=== PATIENT | male | born 1935 | race Caucasian/White ===

== ENCOUNTER 2017-02-09 11:11 | Inpatient (IN) | payer MEDICARE ==
[2017-02-09 11:18] VITALS: BMI 32.0
--- NOTE | 2017-02-09 11:33 | ED PDOC ---
Arrival/HPI - General Chief Complaint: Weakness/Neurological Deficit Time Seen by Provider: 02/09/17 11:17 Historian: Patient - History of Present Illness Narrative History of Present Illness (Text): 02/09/17 11:15 Lakhwinder Ortiz is an 81 year old male, whose past medical history includes hypertension, who presents to the emergency department complaining of right sided facial droop that he noticed one day ago. Patient reports he was on his computer during the afternoon when he suddenly noticed a difference when trying to open his eyes. He also complains of having a headache on the right side and as the day progressed noticed drooping and numbness to right side of face. Denies fever. Denies trauma. Denies dysphagia. Patient denies recent illness, no coughing, fever, nausea, vomiting, shortness of breath, chest pain, or other complaints. Denies chest pain or palpitations. Denies shortness of breath or diaphoresis. PMD: patient lives in [place] Time/Duration: 24 hours Symptom Onset: Sudden Symptom Course: Unchanged Context: Home Associated Symptoms (Text): right sided headache Past Medical History - Provider Review Nursing Documentation Reviewed: Yes - Cardiac Hx Cardiac Disorders: Yes Hx Hypertension: Yes - Pulmonary Hx Respiratory Disorders: No - Neurological Hx Neurological Disorder: No - HEENT Hx HEENT Disorder: No - Renal Hx Renal Disorder: No - Endocrine/Metabolic Hx Endocrine Disorders: Yes Hx Diabetes Mellitus Type 2: Yes - Hematological/Oncological Hx Blood Disorders: No - Integumentary Hx Dermatological Disorder: No - Musculoskeletal/Rheumatological Hx Musculoskeletal Disorders: Yes Hx Arthritis: Yes - Gastrointestinal Hx Gastrointestinal Disorders: No - Genitourinary/Gynecological Hx Genitourinary Disorders: No - Psychiatric Hx Psychophysiologic Disorder: No Hx Substance Use: No Family/Social History - Physician Review Nursing Documentation Reviewed: Yes Family/Social History: Unknown Family HX Smoking Status: Never Smoked Hx Alcohol Use: No Hx Substance Use: No Allergies/Home Meds Allergies/Adverse Reactions: Allergies house dust Allergy (Verified 02/09/17 11:22) CONGESTION Home Medications: Home Meds Medication Instructions Recorded Confirmed Allopurinol [Zyloprim] 200 mg PO DAILY 02/09/17 02/09/17 amLODIPine [Norvasc] 5 mg PO DAILY 02/09/17 02/09/17 Review of Systems - Review of Systems Constitutional: absent: Fatigue, Fevers Eyes: Vision Changes, Other (limited eye control on the right side ) ENT: Other (drooling right sided of face, numbness to right face). absent: Hearing Changes Respiratory: absent: SOB Cardiovascular: absent: Chest Pain Gastrointestinal: absent: Abdominal Pain Genitourinary Male: absent: Dysuria Musculoskeletal: absent: Back Pain Neurological: Headache (right sided ), Facial Droop. absent: Dizziness, Focal Weakness, Gait Changes, Speech Changes, Disequilibrium, Seizure Endocrine: absent: Polydipsia Hemo/Lymphatic: absent: Easy Bleeding Physical Exam - Physical Exam Narrative Physical Exam (Text): 02/09/17 Head: Atraumatic. Normocephalic. Eyes: PERRL. EOMI. Conjunctivae are not pale. ENT: Mucous membranes are moist and intact. Oropharynx is clear and symmetric. No gingival edema or erythema. Neck: Supple. Full ROM. No JVD. No lymphadenopathy.No meningeal signs. Cardiovascular: Regular rate. Regular rhythm. Systolic murmur. Distal pulses are 2+ and symmetric. Pulmonary/Chest: No evidence of respiratory distress. Clear to auscultation bilaterally. No wheezing, rales or rhonchi. Abdominal: Soft and non-distended. There is no tenderness. No rebound, guarding, or rigidity. No organomegaly. Good bowel sounds. Back: No CVA tenderness. Extremities: No edema. No cyanosis. No clubbing. Full range of motion in all extremities. No calf tenderness. Skin: Skin is warm and dry. No petechiae. No purpura. Neurological: Alert, awake, and oriented to person, place, time, and situation. Normal speech. Incomplete right eyelid closure. Right eye tearing. EOMI. PERRLA. Right sided facial droop, forehead sparing. No tongue deviation. NO focal weakness in upper or lower extremities. Reflexes intact. Psychiatric: Good eye contact. Normal interaction, affect, and behavior. Vital Signs Reviewed: Yes Vital Signs Temp Pulse Resp BP Pulse Ox 02/09/17 14:25 94 H 20 149/88 98 02/09/17 13:15 87 20 134/93 H 96 02/09/17 11:42 97 H 18 132/86 96 02/09/17 11:16 97.8 F 94 H 17 164/93 H 97 Temperature: Afebrile Blood Pressure: Hypertensive Pulse: Tachycardic Respiratory Rate: Normal Appearance: Positive for: Well-Appearing, Non-Toxic Pain Distress: Mild Mental Status: Positive for: Alert and Oriented X 3 Finger Stick Blood Glucose: 109 Medical Decision Making ED Course and Treatment: 02/09/17 Impression: 81 year old with right sided facial droop since one day. Differential Diagnosis included but are not limited to: dean's palsy vs. CVA Plan: -- CT Head without contrast -- Chest X-ray -- EKG -- Labs -- Reassess and disposition Progress Notes: Patient has right sided facial droop with incomplete eyelid closure. No trauma. No fever. Forehead sparing. On exam, no fever or meningeal signs. NO dental erythema or edema. Patient with no weakness noted to the arm or legs. Steady gait. He has hx of HTN, diabetes. No prior history of tia or cva. He is visiting from [place]. Abnormal EKG noted, he denies chest pain or palpitations of sob. Card isos unremarkable. 02/09/17 11:47 Chest X-ray Impression: No active disease 02/09/17 12:20 CT Head: Creator : Ximena Abbott MD FINDINGS:Streak artifact from dental hardware. HEMORRHAGE:No intracranial hemorrhage. BRAIN:Diffuse atrophy with prominence of the ventricles and sulci noted. No mass effect or edema. Dense intracranial atherosclerosis. Scattered white matter hypodensities, which are nonspecific, but often seen with chronic microvascular ischemic disease. Please note that MRI with diffusion imaging is more sensitive in the detection of acute ischemic event. VENTRICLES:No hydrocephalus. CALVARIUM:Unremarkable. PARANASAL SINUSES:Mild mucosal thickening of the ethmoid air cells and frontal sinuses. MASTOID AIR CELLS:Unremarkable as visualized. No inflammatory changes. OTHER FINDINGS:None. Impression: Generalized atropathy. Nonspecific white matter changes. Mild mucosal thickening involving ethmoid air cells and bilateral frontal sinuses. Will admit for observation for neuro consultation as well as evaluation of abnormal EKG. D/W Dr. Mehta. Lacrilube, prednisone. valtrex ordered. Treatment plan reviewed with patient and family. - Lab Interpretations Lab Results: 02/09/17 11:30 02/09/17 12:31 Lab Results 02/09/17 12:31: Lyme Disease IgG Ab (IFA) Negative, Lyme Disease IgM Ab Negative 02/09/17 12:31: Sodium 140, Potassium 4.0, Chloride 105, Carbon Dioxide 25, Anion Gap 14, BUN 23 H, Creatinine 1.2, Est GFR ( Amer) > 60, Est GFR ( Non-Af Amer) 58, Random Glucose 119 H, Calcium 9.4, Total Bilirubin 0.8, AST 33 , ALT 41, Alkaline Phosphatase 76, Troponin I < 0.01, Total Protein 8.3, Albumin 4.4, Globulin 3.9, Albumin/Globulin Ratio 1.1, Triglycerides 100, Cholesterol 136, LDL Cholesterol Direct 37, HDL Cholesterol 56 02/09/17 11:30: Hemoglobin A1c 6.0 02/09/17 11:30: PT 11.1, INR 1.01, APTT 29.5 02/09/17 11:30: WBC 5.8, RBC 4.11, Hgb 13.8 L, Hct 40.5 L, MCV 98.5, MCH 33.6, MCHC 34.1, RDW 13.9, Plt Count 173, MPV 10.6, Gran % 62.5, Lymph % (Auto) 30.4, Alpine % (Auto) 5.5, Eos % (Auto) 0.9 L, Baso % (Auto) 0.7, Gran # 3.61, Lymph # 1.8, Alpine # 0.3, Eos # 0.1, Baso # 0.04 I have reviewed the lab results: Yes - RAD Interpretation Radiology Orders: 02/09/17 11:23 HEAD W/O CONTRAST [CT] Stat CHEST PORTABLE [RAD] Stat Head Of Human Resources: Radiologist - EKG Interpretation EKG Interpretation (Text): EKG at 11:25 normal sinus rhythm with sinus arrhythmia, t wave abnormality, consider anterolateral ischemia, prolonged qt Interpreted by ED Physician: Yes Type: 12 lead EKG Comparison: No previous EKG avail. - Medication Orders Current Medication Orders: Acetaminophen (Tylenol 325mg Tab) 650 mg PO Q4H PRN PRN Reason: pain fever Allopurinol (Zyloprim) 200 mg PO DAILY SYLVIA Amlodipine Besylate (Norvasc) 5 mg PO DAILY [facility] Famotidine (Pepcid) 40 mg PO HS [facility] Insulin Human Regular (Humulin R Low) 0 units SC ACHS SY[facility]IA PRN Reason: Protocol Last Admin: 02/09/17 16:52 Dose: 1 units MAR Blood Glucose Document 02/09/17 16:52 MM (Rec: 02/09/17 16:53 MM [id number]) Blood Glucose Finger Stick Blood Glucose (70-120) 158 Subcutaneous Administrations Document 02/09/17 16:52 MM (Rec: 02/09/17 16:53 MM [facility] [id number]) Charges for Administration # of Subcutaneous Administrations 1 Methylprednisolone (Solu-Medrol) 40 mg IVP Q12 SYLVIA Prednisone (Prednisone Tab) 60 mg PO DAILY SYLVIA Stop: 02/14/17 10:01 Discontinued Medications Artificial Tears (Puralube Opht Oint) 0 appl OD STAT STA Stop: 02/09/17 12:57 Last Admin: 02/09/17 13:07 Dose: 1 drop Aspirin (Aspirin Chewable) 81 mg PO STAT STA Stop: 02/09/17 12:54 Last Admin: 02/09/17 13:06 Dose: 81 mg Prednisone (Prednisone Tab) 60 mg PO STAT ONE Stop: 02/09/17 12:54 Last Admin: 02/09/17 13:06 Dose: 60 mg Valacyclovir HCl (Valtrex) 500 mg PO STAT STA PRN Reason: Protocol Stop: 02/09/17 13:01 Last Admin: 02/09/17 13:06 Dose: 500 mg - Scribe Statement The provider has reviewed the documentation as recorded by the Luis Levy Provider Scribe Attestation: All medical record entries made by the Abdulazizibe were at my direction and personally dictated by me. I have reviewed the chart and agree that the record accurately reflects my personal performance of the history, physical exam, medical decision making, and the department course for this patient. I have also personally directed, reviewed, and agree with the discharge instructions and disposition. Disposition/Present on Arrival - Present on Arrival Any Indicators Present on Arrival: No History of DVT/PE: No History of Uncontrolled Diabetes: No Urinary Catheter: No History of Decub. Ulcer: No History Surgical Site Infection Following: None - Disposition Have Diagnosis and Disposition been Completed?: Yes Diagnosis: Facial droop, Abnormal EKG Disposition: HOSPITALIZED Disposition Time: 12:30 Patient Plan: Admission, Telemetry Patient Problems: Current Active Problems Problem Status Onset Abnormal EKG Acute Facial droop Acute BPH (benign prostatic hyperplasia) Chronic Diabetes mellitus Chronic Gout Chronic Hypertension Chronic Osteoarthritis Chronic Condition: FAIR
--- NOTE | 2017-02-09 11:36 | RAD ---
HISTORY: facial droop COMPARISON: No prior. FINDINGS: LUNGS: No active pulmonary disease. PLEURA: No significant pleural effusion identified, no pneumothorax apparent. CARDIOVASCULAR: Mild cardiomegaly. Mild aortic tortuosity OSSEOUS STRUCTURES: No significant abnormalities. VISUALIZED UPPER ABDOMEN: Normal. OTHER FINDINGS: None. IMPRESSION: No active disease.
[2017-02-09 12:01] LABS: BASO # 0.04 K/mm3 (0.0-2.0); BASO % 0.7 % (0.0-3.0); EOS # 0.1 (0.0-0.7); EOS % 0.9 % (1.5-5.0); GRAN # 3.61 (1.4-6.5); GRAN % 62.5 % (50.0-68.0); HEMATOCRIT 40.5 % (42.0-52.0); LYMPH # 1.8 (1.2-3.4); LYMPH % 30.4 % (22.0-35.0); MEAN CELL VOLUME 98.5 fl (80.0-105.0); MEAN CORPUSCULAR HEMOGLOBIN 33.6 pg (25.0-35.0); MEAN CORPUSCULAR HGB CONC 34.1 g/dl (31.0-37.0); MEAN PLATELET VOLUME 10.6 fl (7.0-11.0); MONO # 0.3 (0.1-0.6); MONO % 5.5 % (1.0-6.0); RED CELL DISTRIBUTION WIDTH 13.9 % (11.5-14.5); WHITE BLOOD COUNT 5.8 10^3/ul (4.5-11.0)
[2017-02-09 12:10] LABS: INR 1.01 (0.93-1.08); PARTIAL THROMBOPLASTIN TIME 29.5 Seconds (25.1-36.5)
--- NOTE | 2017-02-09 12:18 | CT ---
PROCEDURE: CT HEAD WITHOUT CONTRAST. HISTORY: right sided facial droop COMPARISON: None available. TECHNIQUE: Axial computed tomography images were obtained through the head/brain without intravenous contrast. Radiation dose: Total exam DLP = 747.90 mGy-cm. This CT exam was performed using one or more of the following dose reduction techniques: Automated exposure control, adjustment of the mA and/or kV according to patient size, and/or use of iterative reconstruction technique. FINDINGS: Streak artifact from dental hardware. HEMORRHAGE: No intracranial hemorrhage. BRAIN: Diffuse atrophy with prominence of the ventricles and sulci noted. No mass effect or edema. Dense intracranial atherosclerosis. Scattered white matter hypodensities, which are nonspecific, but often seen with chronic microvascular ischemic disease. Please note that MRI with diffusion imaging is more sensitive in the detection of acute ischemic event. VENTRICLES: No hydrocephalus. CALVARIUM: Unremarkable. PARANASAL SINUSES: Mild mucosal thickening of the ethmoid air cells and frontal sinuses. MASTOID AIR CELLS: Unremarkable as visualized. No inflammatory changes. OTHER FINDINGS: None. IMPRESSION: Generalized atrophy. Nonspecific white matter changes. Mild mucosal thickening involving ethmoid air cells and bilateral frontal sinuses.
[2017-02-09 12:48] LABS: ALB/GLOB RATIO 1.1 (1.1-1.8); ALKALINE PHOSPHATASE 76 U/L (38-126); ALT/SGPT 41 U/L (7-56); AST/SGOT 33 U/L (17-59); BILIRUBIN,TOTAL 0.8 mg/dL (0.2-1.3); BLOOD UREA NITROGEN 23 mg/dL (7-21); CALCIUM 9.4 mg/dL (8.4-10.5); CARBON DIOXIDE 25 mmol/L (21-33); CHLORIDE 105 mmol/L (98-107); CHOLESTEROL 136 mg/dL (130-200); GFR AFRICAN-AMERICAN > 60; GLUCOSE,RANDOM 119 mg/dL (70-110); SODIUM 140 mmol/L (132-148); TOTAL PROTEIN 8.3 g/dL (5.8-8.3)
[2017-02-09] MEDS ORDERED: White Petrolatum Ophth Oint (Puralube) OD STA (12:56)
[2017-02-09 12:58] LABS: TROPONIN I < 0.01 ng/mL
--- NOTE | 2017-02-09 13:48 | CP.PCM.CON ---
<Anup Allan - Last Filed: 02/09/17 14:31> History of Present Illness - History of Present Illness History of Present Illness: Neurology consult note for Dr. Mehta's service - Jolene Allan PGY2 HPI: Patient is an 81 year-old male with past medical history of hypertension, diabetes mellitus type 2, gout, BPH and osteoarthritis that presents c/o right- sided facial droop. He reports that he was at his dentists office earlier today when his dentist noticed he had right-sided facial droop with asymmetric facial expressions. He reports that his dentist informed him he may be having a stroke and instructed him to go to the emergency room for evaluation. Patient's at bedside reported that neither had noticed the facial droop and he denied any focal weakness, numbness or tingling. He does not recall when the facial droop may have started. Denies chest pain, palpitations, SOB, abdominal pain, nausea, vomiting, fever, chills, cough. Neurology consulted for evaluation of right- sided facial droop and rule out of CVA. 12point ROS as per HPI above otherwise negative PMH: as stated above PSH: Appendectomy Allergies: dust Social Hx: Lives with his , resides in [place]; denies tobacco, alcohol and illicit drug use Family Hx: Brother: DM type 2; Father: Prostate Ca, Parkinson's Past Patient History - Past Social History Smoking Status: Never Smoked - CARDIAC Hx Cardiac Disorders: Yes Hx Hypertension: Yes - PULMONARY Hx Respiratory Disorders: No - NEUROLOGICAL Hx Neurological Disorder: No - HEENT Hx HEENT Problems: No - RENAL Hx Chronic Kidney Disease: No - ENDOCRINE/METABOLIC Hx Endocrine Disorders: Yes Hx Diabetes Mellitus Type 2: Yes - HEMATOLOGICAL/ONCOLOGICAL Hx Blood Disorders: No - INTEGUMENTARY Hx Dermatological Problems: No - MUSCULOSKELETAL/RHEUMATOLOGICAL Hx Musculoskeletal Disorders: Yes Hx Arthritis: Yes - GASTROINTESTINAL Hx Gastrointestinal Disorders: No - GENITOURINARY/GYNECOLOGICAL Hx Genitourinary Disorders: No - PSYCHIATRIC Hx Psychophysiologic Disorder: No Hx Substance Use: No - SURGICAL HISTORY Hx Surgeries: Yes Hx Appendectomy: Yes (1971) Meds Allergies/Adverse Reactions: Allergies Allergy/AdvReac Type Severity Reaction Status Date / Time house dust Allergy CONGESTION Verified 02/09/17 11:22 Physical Exam - Constitutional Appears: Non-toxic, No Acute Distress - Head Exam Head Exam: ATRAUMATIC, NORMAL INSPECTION, NORMOCEPHALIC - Eye Exam Eye Exam: EOMI, PERRL. absent: Conjunctival injection, Periorbital swelling - ENT Exam ENT Exam: Mucous Membranes Moist - Neck Exam Neck exam: Positive for: Normal Inspection. Negative for: Lymphadenopathy, Tenderness, Thyromegaly - Respiratory Exam Respiratory Exam: Clear to Auscultation Bilateral. absent: Rales, Rhonchi, Wheezes - Cardiovascular Exam Cardiovascular Exam: RRR, +S1, +S2. absent: Gallop, JVD, Rubs - GI/Abdominal Exam GI & Abdominal Exam: Soft. absent: Distended, Firm, Guarding, Rebound, Tenderness - Extremities Exam Extremities exam: Positive for: normal inspection. Negative for: pedal edema, tenderness - Neurological Exam Neurological exam: Alert, CN II-XII Intact, Oriented x3 Additional comments: right-sided facial droop EOMI PERRL CN2-12 grossly intact motor strength 5/5 bilaterally in upper and lower extremities sensory intact throughout babinski downward going bilaterally no drift gait deferred - Psychiatric Exam Psychiatric exam: Normal Affect, Normal Mood - Skin Skin Exam: Dry, Intact, Normal Color, Warm Results - Vital Signs Recent Vital Signs: Last Vital Signs Temp 97.8 F 02/09/17 11:16 Pulse 87 02/09/17 13:15 Resp 20 02/09/17 13:15 BP 134/93 H 02/09/17 13:15 Pulse Ox 96 02/09/17 13:15 - Labs Result Diagrams: 02/09/17 11:30 02/09/17 12:31 Assessment & Plan - Assessment and Plan (Free Text) Plan: 81 year-old male with history of DM type 2, BPH, osteoarthritis, hypertension and gout presents c/o right-sided facial droop. Neurology consulted for evaluation. 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 DM type 2 3. Hypertension 4. Osteoarthritis 5. 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 Mehta - Date & Time Date: 02/09/17 Time: 13:50 <Juanito Mehta - Last Filed: 02/09/17 16:28> Meds - Medications Medications: Current Medications Acetaminophen (Tylenol 325mg Tab) 650 mg PO Q4H PRN PRN Reason: pain fever Allopurinol (Zyloprim) 200 mg PO DAILY [facility] Amlodipine Besylate (Norvasc) 5 mg PO DAILY [facility] Famotidine (Pepcid) 40 mg PO HS [facility] Insulin Human Regular (Humulin R Low) 0 units SC ACHS [facility]IA PRN Reason: Protocol Methylprednisolone (Solu-Medrol) 40 mg IVP Q12 SY[facility]IA Prednisone (Prednisone Tab) 60 mg PO DAILY SY[facility]IA Stop: 02/14/17 10:01 Results - Vital Signs Recent Vital Signs: Last Vital Signs Temp 97.8 F 02/09/17 11:16 Pulse 94 H 02/09/17 14:25 Resp 20 02/09/17 14:25 BP 149/88 02/09/17 14:25 Pulse Ox 98 02/09/17 14:25 - Labs Result Diagrams: 02/09/17 11:30 02/09/17 12:31 Attending/Attestation - Attestation I have personally seen and examined this patient.: Yes I have fully participated in the care of the patient.: Yes I have reviewed all pertinent clinical information: Yes
[2017-02-09] MEDS: Insulin Reg-LOW-Coverage SC SCH (16:52)
[2017-02-09 18:03] LABS: LYME IGM NEGATIVE (NEGATIVE)
[2017-02-09 18:14] LABS: LYME IGG NEGATIVE (NEGATIVE)
--- NOTE | 2017-02-09 21:04 | CP.PCM.PN ---
Subjective - Date & Time of Evaluation Date of Evaluation: 02/09/17 Time of Evaluation: 21:01 - Subjective Subjective: 81yr male who recently traveled from [place] to [place] came to [facility] secondary to R side facial droop and R lid lag. History includes: HTN, DM II, ostearthritis, BPH, & gout. Patient seen at bedside and reports improvement of facial muscles after being started on steroids. He denies denies any SOB, N/V, chest pain, diarrhea, constipation or urinary frequency. Objective - Vital Signs/Intake and Output Vital Signs (last 24 hours): Temp Pulse Resp BP Pulse Ox 98 F 116 H 17 142/91 H 98 02/09/17 18:00 02/09/17 18:00 02/09/17 18:00 02/09/17 18:00 02/09/17 14:25 - Medications Medications: Current Medications Acetaminophen (Tylenol 325mg Tab) 650 mg PO Q4H PRN PRN Reason: pain fever Allopurinol (Zyloprim) 200 mg PO DAILY SY[facility]IA Amlodipine Besylate (Norvasc) 5 mg PO DAILY [facility] Famotidine (Pepcid) 40 mg PO HS [facility] Insulin Human Regular (Humulin R Low) 0 units SC ACHS [facility]IA PRN Reason: Protocol Last Admin: 02/09/17 16:52 Dose: 1 units Methylprednisolone (Solu-Medrol) 40 mg IVP Q12 SY[facility]IA Prednisone (Prednisone Tab) 60 mg PO DAILY SYLVIA Stop: 02/14/17 10:01 - Labs Labs: PT 11.1 SECONDS (9.4-12.5) 02/09/17 11:30 INR 1.01 (0.93-1.08) 02/09/17 11:30 APTT 29.5 Seconds (25.1-36.5) 02/09/17 11:30 - Constitutional Appears: Well - Head Exam Head Exam: NORMAL INSPECTION Additional comments: R facial paralysis - Eye Exam Eye Exam: PERRL Additional comments: R eye lid leg w/ ocular lubricant applied - ENT Exam ENT Exam: Mucous Membranes Moist - Neck Exam Neck Exam: Full ROM - Respiratory Exam Respiratory Exam: Clear to Ausculation Bilateral - Cardiovascular Exam Cardiovascular Exam: Tachycardia, +S1, +S2 - GI/Abdominal Exam GI & Abdominal Exam: Soft - Extremities Exam Extremities Exam: Full ROM - Neurological Exam Neurological Exam: Alert, Awake, Oriented x3 Neuro motor strength exam: Left Upper Extremity: 5, Right Upper Extremity: 5, Left Lower Extremity: 5, Right Lower Extremity: 5 - Psychiatric Exam Psychiatric exam: Normal Affect, Normal Mood - Skin Skin Exam: Dry, Intact, Normal Color, Warm Assessment and Plan (1) Facial droop Status: Acute (2) Abnormal EKG Status: Acute (3) Hypertension Status: Chronic (4) Diabetes mellitus Status: Chronic (5) BPH (benign prostatic hyperplasia) Status: Chronic (6) Gout Status: Chronic (7) Osteoarthritis Status: Chronic - Assessment and Plan (Free Text) Plan: 1) R side face paralysis * Dr. Mehta on for Neurology, Chaudhry's Palsy vs. CVA/TIA * (+)Prednisose (+)Lubricating eye drops (+)eye patch * Head CT = Mild mucosal thickening in ethmoid air cells & b/l frontal sinuses * CXR (-) WNL 2)Abnormal ECG * ECG = Abnormal: NSR w/ SA, T wave abnormalities (possible anterolateral ischemia), prolonged QT * Dr. Uribe / Dr. Hatfield on for Cardiology 3)HTN * Elevated BP readings noted. 4)DM II * Hyperglycemia noted.
--- NOTE | 2017-02-09 21:23 | CP.PCM.HP ---
<Tena Solitario - Last Filed: 02/13/17 09:36> History of Present Illness - History of Present Illness History of Present Illness: 81yr male who recently traveled from [place] to [place] came to [facility] secondary to R side facial droop and R lid lag. History includes: HTN, DM II, ostearthritis, BPH, & gout. Patient seen at bedside and reports improvement of facial muscles after being started on steroids. He denies denies any SOB, N/V, chest pain, diarrhea, constipation or urinary frequency. Present on Admission - Present on Admission History of DVT/PE: No History of Uncontrolled Diabetes: Yes Urinary Catheter: No Decubitus Ulcer Present: No Review of Systems - Constitutional Constitutional: As Per HPI - EENT Eyes: As Per HPI Past Patient History - Past Medical History & Family History Past Family History: Reviewed and not pertinent - Past Social History Smoking Status: Never Smoked Alcohol: None Drugs: Denies Home Situation {Lives}: Other (Lives in [place]) - CARDIAC Hx Cardiac Disorders: Yes Hx Cardia Arrhythmia: Yes Hx Hypertension: Yes - PULMONARY Hx Respiratory Disorders: No - NEUROLOGICAL Hx Neurological Disorder: No - HEENT Hx HEENT Problems: No - RENAL Hx Chronic Kidney Disease: Yes - ENDOCRINE/METABOLIC Hx Endocrine Disorders: Yes Hx Diabetes Insipidus: Yes Hx Diabetes Mellitus Type 2: Yes Other/Comment: appendectomy - HEMATOLOGICAL/ONCOLOGICAL Hx Blood Disorders: No - INTEGUMENTARY Hx Dermatological Problems: No Other/Comment: dry skin - MUSCULOSKELETAL/RHEUMATOLOGICAL Hx Musculoskeletal Disorders: Yes Hx Falls: No Hx Gout: Yes Hx Osteoarthritis: Yes - GASTROINTESTINAL Hx Gastrointestinal Disorders: No - GENITOURINARY/GYNECOLOGICAL Hx Genitourinary Disorders: No Hx Prostate Problems: Yes (BPH) - PSYCHIATRIC Hx Psychophysiologic Disorder: No Hx Substance Use: No - SURGICAL HISTORY Hx Appendectomy: Yes Meds Home Medications: Home Medication List Medication Instructions Recorded Confirmed Type Famotidine [Pepcid] 40 mg PO HS #30 tab 02/12/17 Rx Allergies/Adverse Reactions: Allergies Allergy/AdvReac Type Severity Reaction Status Date / Time house dust Allergy CONGESTION Verified 02/09/17 11:22 Physical Exam - Head Exam Additional comments: R facial paralysis - Eye Exam Additional comments: R eye lid leg w/ ocular lubricant applied - ENT Exam ENT Exam: Mucous Membranes Moist - Neck Exam Neck exam: Positive for: Normal Inspection - Respiratory Exam Respiratory Exam: Clear to Auscultation Bilateral - Cardiovascular Exam Cardiovascular Exam: Tachycardia, +S1, +S2 - GI/Abdominal Exam GI & Abdominal Exam: Normal Bowel Sounds, Soft - Extremities Exam Extremities exam: Positive for: full ROM, normal inspection - Neurological Exam Neurological exam: Alert, Oriented x3 - Psychiatric Exam Psychiatric exam: Normal Affect - Skin Skin Exam: Dry, Intact, Normal Color Results - Vital Signs Recent Vital Signs: Last Vital Signs Temp 98 F 02/09/17 18:00 Pulse 116 H 02/09/17 18:00 Resp 17 02/09/17 18:00 BP 142/91 H 02/09/17 18:00 Pulse Ox 98 02/09/17 14:25 - Labs Result Diagrams: 02/12/17 07:00 02/12/17 07:00 Assessment & Plan (1) Facial droop Status: Acute (2) Abnormal EKG Status: Acute (3) Hypertension Status: Chronic (4) Diabetes mellitus Status: Chronic (5) Anemia Status: Acute (6) Gout Status: Chronic (7) Osteoarthritis Status: Chronic (8) BPH (benign prostatic hyperplasia) Status: Chronic - Assessment and Plan (Free Text) Assessment: 1) R side face paralysis * Dr. 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 Uribe / Dr. Hatfield on for Cardiology * CXR (-) WNL 3)HTN * Elevated BP readings noted. 4)DM II * Hyperglycemia noted. 5)Anemia * Borderline. Will repeat labs. 6)Gout, Osteoarthritis, BPH are stable. Decision To Admit - Pt Status Changed To: Hospital Disposition Of: Observation - . Bed Request Type: Telemetry Admitting Physician: Aliyah Lam <Aliyah Lam - Last Filed: 02/13/17 10:42> Present on Admission - Present on Admission Any Indicators Present on Admission: No History of DVT/PE: No History of Uncontrolled Diabetes: Yes Urinary Catheter: No Decubitus Ulcer Present: No Results - Vital Signs Recent Vital Signs: Last Vital Signs Temp 98.7 F 02/10/17 06:00 Pulse 77 02/10/17 06:00 Resp 19 02/10/17 06:00 BP 116/66 02/10/17 06:00 Pulse Ox 95 02/10/17 06:00 - Labs Result Diagrams: 02/12/17 07:00 02/12/17 07:00 Labs: Laboratory Results - last 24 hr 02/09/17 21:36 POC Glucose (mg/dL) 226 H Assessment & Plan - Assessment and Plan (Free Text) Plan: 81yr male who recently traveled from [place] to [place] came to [facility] secondary to R side facial droop and R lid lag. History includes: HTN, DM II, ostearthritis, BPH, & gout. Patient seen at bedside and reports improvement of facial muscles after being started on steroids. He denies denies any SOB, N/V, chest pain, diarrhea, constipation or urinary frequency. PLAN 1) R side face paralysis * Dr. 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 Uribe / Dr. Hatfield on for Cardiology * CXR (-) WNL 3)HTN * Elevated BP readings noted. 4)DM II * Hyperglycemia noted. 5)Anemia * Borderline. Will repeat labs. 6)Gout, Osteoarthritis, BPH are stable. agreed all above , pt is s/e at bed side , d/d with pt , loan review analyst and staff , neurology consult called , pt .ot 0rdered
[2017-02-09] MEDS: MethylPREDNISolone 40 mg Vial IVP SCH (21:50)
[2017-02-10] MEDS: Insulin Reg-LOW-Coverage SC SCH ×5 (01:11→21:22)
[2017-02-10] MEDS: MethylPREDNISolone 40 mg Vial IVP SCH ×3 (09:59→22:37)
--- NOTE | 2017-02-10 10:15 | CARD ---
APPROVED REPORT EKG Measurement Heart [id number] <Conclusion> Normal sinus rhythm with sinus arrhythmia T wave abnormality, consider anterolateral ischemia Prolonged QT Abnormal ECG
--- NOTE | 2017-02-11 00:14 | PN ---
DATE: SUBJECTIVE: The patient is a 81-year-old male. The patient is seen and examined at the bedside looking comfortable. Still having facial asymmetry. No nausea, vomiting, or diarrhea. No hematuria or hematochezia. No headache. No dizziness. No chest pain. No palpitation. No swellings of the legs. PHYSICAL EXAMINATION: VITAL SIGNS: Temperature 98.8, pulse 70, blood pressure 128/75, and respiratory rate 20. HEENT: Head is normocephalic and atraumatic. Eyes, PERRLA. Extraocular muscles intact. Conjunctivae clear. Nose patent. NECK: Supple. No carotid bruits. No JVD or thyromegaly. CHEST: Bilaterally symmetrical. HEART: S1 and S2 positive. LUNGS: Clear to auscultation. ABDOMEN: Soft. Bowel sounds present. No organomegaly. EXTREMITIES: No edema. No cyanosis. NEUROLOGICAL: The patient is awake and alert. Moving all 4 extremities. No focal deficit. MEDICATIONS: Insulin, amlodipine, Pepcid, prednisone tapering dose, Tylenol, and allopurinol. LABORATORY DATA: White blood cells 5.8, hemoglobin 13.8, hematocrit 40.5, and platelets 173. Sodium 140, potassium 4, BUN 23, creatinine 1.2 and glucose 158. Random glucose 119. ASSESSMENT AND PLAN: Mr. Lakhwinder Ortiz is an 81-year-old male with anemia, uncontrolled diabetes mellitus, Lyme disease negative, seen by Dr. 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 The patient is getting prednisone and lubricating eyedrops in the emergency room. Continue steroids, protective measures, gastrointestinal and deep vein thrombosis prophylaxis. We will do bilateral carotid Doppler of the neck, out of bed, physical therapy and occupational therapy and we will follow up. Aliyah Lam MD
[2017-02-11 06:20] LABS: HEMATOCRIT 37.6 % (42.0-52.0); MEAN CELL VOLUME 97.4 fl (80.0-105.0); MEAN CORPUSCULAR HEMOGLOBIN 32.9 pg (25.0-35.0); MEAN CORPUSCULAR HGB CONC 33.8 g/dl (31.0-37.0); MEAN PLATELET VOLUME 10.6 fl (7.0-11.0); RED CELL DISTRIBUTION WIDTH 13.9 % (11.5-14.5); WHITE BLOOD COUNT 11.3 10^3/ul (4.5-11.0)
[2017-02-11 06:40] LABS: ALKALINE PHOSPHATASE 58 U/L (38-126); ALT/SGPT 43 U/L (7-56); AST/SGOT 32 U/L (17-59); BILIRUBIN,TOTAL 0.5 mg/dL (0.2-1.3); BLOOD UREA NITROGEN 33 mg/dL (7-21); CALCIUM 9.2 mg/dL (8.4-10.5); CARBON DIOXIDE 24 mmol/L (21-33); CHLORIDE 109 mmol/L (95-110); GFR AFRICAN-AMERICAN > 60; GLUCOSE,RANDOM 138 mg/dL (70-110); POTASSIUM 4.1 mmol/L (3.6-5.0); SODIUM 141 mmol/L (132-148); TOTAL PROTEIN 7.6 g/dL (5.8-8.3); URIC ACID 6.6 mg/dL (3.5-8.5)
[2017-02-11] MEDS: Insulin Reg-LOW-Coverage SC SCH ×4 (08:04→22:46)
[2017-02-11] MEDS: White Petrolatum Ophth Oint (Puralube) OD SCH ×3 (09:53→17:17)
[2017-02-11] MEDS: MethylPREDNISolone 40 mg Vial IVP SCH ×2 (09:53→22:32)
--- NOTE | 2017-02-11 18:32 | PN ---
DATE: SUBJECTIVE: The patient is an 81-year-old male. The patient is seen and examined at the bedside, got Occupational Therapy and Physical Therapy in the morning. Feeling better. No nausea, vomiting, or diarrhea. No hematuria or hematochezia. No headache. No dizziness. No chest pain. No palpitation. PHYSICAL EXAMINATION: VITAL SIGNS: Temperature 97.4, pulse 74, blood pressure 134/68, and respiratory rate 20. HEENT: Head is normocephalic and atraumatic. Eyes, PERRLA. Extraocular muscles intact. Conjunctivae clear. Nose patent. Mucous membrane is moist. NECK: Supple. No carotid bruits. No JVD or thyromegaly. CHEST: Bilaterally symmetrical. HEART: S1 and S2 positive. LUNGS: Clear to auscultation. ABDOMEN: Soft. Bowel sounds present. No organomegaly. EXTREMITIES: No edema. No cyanosis. NEUROLOGICAL: The patient is awake and alert. Moving all 4 extremities. No focal deficit. MEDICATIONS: Insulin, Norvasc, Pepcid, artificial tears, Solu-Medrol, Tylenol, and allopurinol. LABORATORY DATA: White blood cells 11.3, hemoglobin 12.7, hematocrit 37.6, and platelets 172. Sodium 141, potassium 4.1, BUN 33, creatinine 1.3 and glucose 187. TSH 0.28. Lyme disease negative. ASSESSMENT AND PLAN: Mr. Lakhwinder Ortiz is an 81-year-old male with leukocytosis, anemia, diabetes mellitus uncontrolled, rule out hyperthyroidism, Lyme disease negative, history of osteoarthritis, hypertension, gouty arthritis, came with right-sided facial droop and eye droop, has Chaudhry's palsy as per Neurologist. The patient is getting prednisone and lubricating the eyedrops in the right eye. We will continue tapering dose of steroids. Bilateral carotid Doppler of the neck done. Results are pending. Waiting for Dr. Dr. Juanito Mehta's input and Dr. Marcial's input. Gastrointestinal and deep vein thrombosis prophylaxis, repeat labs. We will follow up. Aliyah Lam MD
--- NOTE | 2017-02-11 21:06 | CP.PCM.CON ---
History of Present Illness - History of Present Illness History of Present Illness: Infectious Disease Consultation: February 11, 2017 81 yo male who travels from [place] to [place]. Sudden onset of Right facial droop and lid lag. No previous history. Patient with past medical history of osteoarthritis, BPH, Gout, HTN, and DM Type II. Patient still with right lower facial weakness. Deviation of the tongue to the left. PMHx: osteoarthritis, BPH, Gout, HTN, Cardiac Arrhythmias, and DM Type II PSHx: Appendectomy Allergies: house dust Social Hx: No tobacco, EtOH, or illicit drug use Active Medications Acetaminophen (Tylenol 325mg Tab) 650 mg PO Q4H PRN PRN Reason: pain fever Allopurinol (Zyloprim) 200 mg PO DAILY [facility] Last Admin: 02/11/17 09:53 Dose: 200 mg Amlodipine Besylate (Norvasc) 5 mg PO DAILY [facility] Last Admin: 02/11/17 09:53 Dose: 5 mg Artificial Tears (Puralube Opht Oint) 1 appl OD TID [facility] Last Admin: 02/11/17 17:17 Dose: 1 appl Famotidine (Pepcid) 40 mg PO HS [facility] Last Admin: 02/10/17 21:22 Dose: 40 mg Insulin Human Regular (Humulin R Low) 0 units SC ACHS [facility] PRN Reason: Protocol Last Admin: 02/11/17 16:44 Dose: 1 units Methylprednisolone (Solu-Medrol) 30 mg IVP Q12 [facility] Family Hx: none given ROS: No fevers, chills, nausea, vomiting, diarrhea, headaches, dizziness, chest pain , abdominal pain, melena, hematuria, hematemesis, hematochezia, depression, anxiety. Past Patient History - Past Medical History & Family History Past Family History: Reviewed and not pertinent - Past Social History Smoking Status: Never Smoked - CARDIAC Hx Cardiac Disorders: Yes Hx Hypertension: Yes - PULMONARY Hx Respiratory Disorders: No - NEUROLOGICAL Hx Neurological Disorder: No - HEENT Hx HEENT Problems: No - RENAL Hx Chronic Kidney Disease: No - ENDOCRINE/METABOLIC Hx Diabetes Mellitus Type 2: Yes - HEMATOLOGICAL/ONCOLOGICAL Hx Blood Disorders: No - INTEGUMENTARY Hx Dermatological Problems: No - MUSCULOSKELETAL/RHEUMATOLOGICAL Hx Arthritis: Yes - GASTROINTESTINAL Hx Gastrointestinal Disorders: No - GENITOURINARY/GYNECOLOGICAL Hx Genitourinary Disorders: No - PSYCHIATRIC Hx Psychophysiologic Disorder: No Hx Substance Use: No - SURGICAL HISTORY Hx Appendectomy: Yes Meds Allergies/Adverse Reactions: Allergies Allergy/AdvReac Type Severity Reaction Status Date / Time house dust Allergy CONGESTION Verified 02/09/17 11:22 - Medications Medications: Current Medications Acetaminophen (Tylenol 325mg Tab) 650 mg PO Q4H PRN PRN Reason: pain fever Allopurinol (Zyloprim) 200 mg PO DAILY [facility] Last Admin: 02/11/17 09:53 Dose: 200 mg Amlodipine Besylate (Norvasc) 5 mg PO DAILY [facility] Last Admin: 02/11/17 09:53 Dose: 5 mg Artificial Tears (Puralube Opht Oint) 1 appl OD TID [facility] Last Admin: 02/11/17 17:17 Dose: 1 appl Famotidine (Pepcid) 40 mg PO HS [facility] Last Admin: 02/10/17 21:22 Dose: 40 mg Insulin Human Regular (Humulin R Low) 0 units SC ACHS [facility] PRN Reason: Protocol Last Admin: 02/11/17 16:44 Dose: 1 units Methylprednisolone (Solu-Medrol) 30 mg IVP Q12 [facility] Physical Exam - Constitutional Appears: Non-toxic, No Acute Distress, Chronically Ill - Head Exam Head Exam: ATRAUMATIC, NORMOCEPHALIC - Eye Exam Eye Exam: EOMI, PERRL Pupil Exam: NORMAL ACCOMODATION, PERRL - ENT Exam ENT Exam: Mucous Membranes Moist, Normal External Ear Exam, TM's Normal Bilaterally - Neck Exam Neck exam: Positive for: Full Rom, Normal Inspection - Respiratory Exam Respiratory Exam: Clear to Auscultation Bilateral, NORMAL BREATHING PATTERN. absent: Rales, Rhonchi, Wheezes - Cardiovascular Exam Cardiovascular Exam: REGULAR RHYTHM, RRR, +S1, +S2 - GI/Abdominal Exam GI & Abdominal Exam: Normal Bowel Sounds, Soft. absent: Distended, Tenderness - Rectal Exam Rectal Exam: NORMAL INSPECTION - Extremities Exam Extremities exam: Positive for: full ROM, normal inspection - Neurological Exam Neurological exam: Alert, Altered, Oriented x3 Additional comments: right facial droop with deviation of tongue to the left. - Psychiatric Exam Psychiatric exam: Normal Affect, Normal Mood - Skin Skin Exam: Intact, Normal Color Results - Vital Signs Recent Vital Signs: Last Vital Signs Temp 98.1 F 02/11/17 17:37 Pulse 65 02/11/17 18:00 Resp 18 11/12/17 17:37 BP 138/73 02/11/17 17:37 Pulse Ox 94 L 02/11/17 17:29 - Labs Result Diagrams: 02/11/17 05:30 02/11/17 05:30 Labs: Laboratory Results - last 24 hr 02/10/17 02/11/17 02/11/17 21:19 05:30 05:30 WBC 11.3 H D RBC 3.86 Hgb 12.7 L Hct 37.6 L MCV 97.4 MCH 32.9 MCHC 33.8 RDW 13.9 Plt Count 172 MPV 10.6 Sodium 141 Potassium 4.1 Chloride 109 Carbon Dioxide 24 Anion Gap 12 BUN 33 H Creatinine 1.3 Est GFR ( Amer) > 60 Est GFR (Non-Af Amer) 53 POC Glucose (mg/dL) 162 H Random Glucose 138 H Uric Acid 6.6 Calcium 9.2 Total Bilirubin 0.5 AST 32 ALT 43 Alkaline Phosphatase 58 Total Protein 7.6 Albumin 3.9 Globulin 3.8 Albumin/Globulin Ratio 1.0 L TSH 3rd Generation 02/11/17 02/11/17 02/11/17 05:30 07:42 11:49 WBC RBC Hgb Hct MCV MCH MCHC RDW Plt Count MPV Sodium Potassium Chloride Carbon Dioxide Anion Gap BUN Creatinine Est GFR ( Amer) Est GFR (Non-Af Amer) POC Glucose (mg/dL) 133 H 122 H Random Glucose Uric Acid Calcium Total Bilirubin AST ALT Alkaline Phosphatase Total Protein Albumin Globulin Albumin/Globulin Ratio TSH 3rd Generation 0.28 L 02/11/17 16:30 WBC RBC Hgb Hct MCV MCH MCHC RDW Plt Count MPV Sodium Potassium Chloride Carbon Dioxide Anion Gap BUN Creatinine Est GFR ( Amer) Est GFR (Non-Af Amer) POC Glucose (mg/dL) 187 H Random Glucose Uric Acid Calcium Total Bilirubin AST ALT Alkaline Phosphatase Total Protein Albumin Globulin Albumin/Globulin Ratio TSH 3rd Generation Assessment & Plan - Assessment and Plan (Free Text) Assessment: 81 yo male presenting with new onset right lower facial droop and eyelid lag. No previous history. Check for common viruses as a trigger point. There is no set therapy for the patient's current neurologic condition. It does not appear allergic in nature. Supportive care. Obtain influenza, CMV, and EBV studies at this time. Obtain ESR and C-Reactive protein. Thank you for allowing me to participate in the care of this patient, we will follow with you.
[2017-02-12 03:20] VITALS: RESP 20
[2017-02-12 07:11] VITALS: O2SAT 96
[2017-02-12 07:25] LABS: HEMATOCRIT 38.4 % (42.0-52.0); MEAN CELL VOLUME 98.2 fl (80.0-105.0); MEAN CORPUSCULAR HGB CONC 33.6 g/dl (31.0-37.0); MEAN PLATELET VOLUME 10.7 fl (7.0-11.0); RED CELL DISTRIBUTION WIDTH 14.1 % (11.5-14.5); WHITE BLOOD COUNT 10.7 10^3/ul (4.5-11.0)
[2017-02-12 07:50] LABS: BLOOD UREA NITROGEN 37 mg/dL (7-21); CARBON DIOXIDE 27 mmol/L (21-33); CHLORIDE 107 mmol/L (98-107); GFR AFRICAN-AMERICAN > 60; GLUCOSE,RANDOM 133 mg/dL (70-110); POTASSIUM 4.4 mmol/L (3.6-5.0); SODIUM 142 mmol/L (132-148)
[2017-02-12] MEDS: Insulin Reg-LOW-Coverage SC SCH ×2 (08:00→11:57)
--- NOTE | 2017-02-12 09:00 | US ---
PROCEDURE: Bilateral carotid artery duplex ultrasound HISTORY: Carotid stenosis TIA PHYSICIAN(S): Tristin Gudino MD. TECHNIQUE: Duplex sonography and color-flow Doppler were used to evaluate the carotid bifurcations and limited segments of the vertebral arteries bilaterally. The exam is somewhat limited by body habitus P FINDINGS: There is mild smooth heterogeneous plaque noted at the carotid bifurcations bilaterally. The peak systolic velocity in the proximal right internal carotid artery is 55 cm/sec. This corresponds to a 20 to 39% proximal right ICA stenosis. Normal systolic velocities are noted in the proximal right external carotid artery. There is antegrade flow in the right vertebral artery. The peak systolic velocity in the proximal left internal carotid artery is 86 cm/sec. This corresponds to a 20 to 39% proximal left ICA stenosis. Normal systolic velocities are noted in the proximal left external carotid artery. There is antegrade flow in the left vertebral artery. IMPRESSION: 1. Bilateral 20-39% proximal ICA stenoses. 2. Antegrade flow in both vertebral arteries.
[2017-02-12] MEDS: MethylPREDNISolone 40 mg Vial IVP SCH (09:52)
[2017-02-12] MEDS: White Petrolatum Ophth Oint (Puralube) OD SCH (09:53)
[2017-02-12 12:37] VITALS: BP 148/83; PULSE 63; TEMP 98.3
--- NOTE | 2017-02-12 17:37 | CARD ---
APPROVED REPORT EXAM: Two-dimensional and M-mode echocardiogram with Doppler and color Doppler. INDICATION Dyspnea 2D DIMENSIONS Left Atrium (2D)4.4 (1.6-4.0cm)IVSd1.5 (0.7-1.1cm) LVDd3.5 (3.9-5.9cm)PWd1.4 (0.7-1.1cm) LVDs2.6 (2.5-4.0cm)FS (%) 25.1 % LVEF (%)50.7 (>50%) M-Mode DIMENSIONS Aortic Root3.90 (2.2-3.7cm)Aortic Cusp Exc.1.30 (1.5-2.0cm) Aortic Valve AoV Peak Ebyoxtfp679.0cm/Nicolás Peak GR.12mmHg Mitral Valve MV E Ndkblnut52.3cm/sMV A Whltjusb733.0cm/sE/A ratio0.5 TDI E/Lateral E'0.0E/Medial E'0.0 Tricuspid Valve TR Peak [id number] [id number] Peak Gr.21mmHg [id number] LEFT VENTRICLE The left ventricle is normal size. There is mild concentric left ventricular hypertrophy. The left ventricular function is normal.EF-55% There is normal LV segmental wall motion. Transmitral Doppler flow pattern is Grade III-reversible restrictive diastolic dysfunction. No left ventricle thrombus noted on this study. There is no ventricular septal defect visualized. There is no left ventricular aneurysm. There is no mass noted in the left ventricle. RIGHT VENTRICLE The right ventricle is normal size. There is normal right ventricular wall thickness. The right ventricular systolic function is normal. ATRIA The left atrium is mildly dilated. The right atrium size is normal. The interatrial septum is intact with no evidence for an atrial septal defect. AORTIC VALVE The aortic valve is thickened but opens well. The aortic valve is mildly to moderately sclerotic. There is mild to moderate aortic regurgitation. There is no aortic valvular stenosis. There is no aortic valvular vegetation. MITRAL VALVE The mitral valve is thickened but opens well. Mitral annular calcification is mild. Mitral regurgitation is mild. There is no mitral valve stenosis. There is no evidence of mitral valve prolapse. TRICUSPID VALVE The tricuspid valve is normal in structure. There is mild tricuspid regurgitation.RVSP-31 mmof hg. There is no tricuspid valve stenosis. There is no tricuspid valve prolapse or vegetation. PULMONIC VALVE The pulmonary valve is normal in structure. There is no pulmonic valvular regurgitation. There is no pulmonic valvular stenosis. GREAT VESSELS The aortic root is normal in size. The ascending aorta is normal in size. The pulmonary artery is normal. The IVC is normal in size and collapses >50% with inspiration. PERICARDIAL EFFUSION There is no pleural effusion. There is no pericardial effusion. <Conclusion> The left ventricle is normal size. There is mild concentric left ventricular hypertrophy. The left ventricular function is normal.EF-55% There is mild to moderate aortic regurgitation. Mitral regurgitation is mild. There is mild tricuspid regurgitation.RVSP-31 mmof hg. The IVC is normal in size and collapses >50% with inspiration. There is no pericardial effusion.
--- NOTE | 2017-02-12 17:51 | CP.PCM.PN ---
Subjective - Date & Time of Evaluation Date of Evaluation: 02/12/17 Time of Evaluation: 14:00 - Subjective Subjective: Infectious Disease Follow Up: February 12, 2017 81 yo male who travels from [place] to [place]. Sudden onset of Right facial droop and lid lag. No previous history. Patient with past medical history of osteoarthritis, BPH, Gout, HTN, and DM Type II. Patient still with right lower facial weakness. Deviation of the tongue to the left. Diagnosis of Chaudhry's Palsy. The patient had been given a dose of Acyclovir in ER. Patient stating that he feels better. Objective - Vital Signs/Intake and Output Vital Signs (last 24 hours): Temp Pulse Resp BP Pulse Ox 98.3 F 63 20 148/83 96 02/12/17 12:00 02/12/17 12:00 02/12/17 12:00 02/12/17 12:00 02/12/17 06:00 Intake and Output: 02/12/17 02/12/17 06:59 18:59 Intake Total 200 Output Total 1000 Balance -800 - Medications Medications: Current Medications Acetaminophen (Tylenol 325mg Tab) 650 mg PO Q4H PRN PRN Reason: pain fever Allopurinol (Zyloprim) 200 mg PO DAILY [facility] Last Admin: 02/12/17 09:52 Dose: 200 mg Amlodipine Besylate (Norvasc) 5 mg PO DAILY [facility] Last Admin: 02/12/17 09:51 Dose: 5 mg Artificial Tears (Puralube Opht Oint) 1 appl OD TID [facility] Last Admin: 02/12/17 09:53 Dose: 1 appl Famotidine (Pepcid) 40 mg PO HS [facility] Last Admin: 02/11/17 22:32 Dose: 40 mg Insulin Human Regular (Humulin R Low) 0 units SC ACHS [facility] PRN Reason: Protocol Last Admin: 02/12/17 11:57 Dose: 2 units Methylprednisolone (Solu-Medrol) 30 mg IVP Q12 [facility] Last Admin: 02/12/17 09:52 Dose: 30 mg - Labs Labs: 02/12/17 07:00 02/12/17 07:00 PT 11.1 SECONDS (9.4-12.5) 02/09/17 11:30 INR 1.01 (0.93-1.08) 02/09/17 11:30 APTT 29.5 Seconds (25.1-36.5) 02/09/17 11:30 - Constitutional Appears: Non-toxic, No Acute Distress, Chronically Ill - Head Exam Head Exam: ATRAUMATIC, NORMOCEPHALIC - Eye Exam Eye Exam: EOMI, PERRL Pupil Exam: NORMAL ACCOMODATION, PERRL - ENT Exam ENT Exam: Mucous Membranes Moist, Normal External Ear Exam, TM's Normal Bilaterally - Neck Exam Neck Exam: Full ROM, Normal Inspection - Respiratory Exam Respiratory Exam: Clear to Ausculation Bilateral, NORMAL BREATHING PATTERN. absent: Rales, Rhonchi, Wheezes - Cardiovascular Exam Cardiovascular Exam: REGULAR RHYTHM, RRR, +S1, +S2 - GI/Abdominal Exam GI & Abdominal Exam: Soft, Normal Bowel Sounds. absent: Distended, Tenderness - Extremities Exam Extremities Exam: Full ROM, Normal Inspection - Neurological Exam Neurological Exam: Alert, Awake, Oriented x3 Additional comments: right facial droop with deviation of tongue to the left. - Psychiatric Exam Psychiatric exam: Normal Affect, Normal Mood - Skin Skin Exam: Intact, Normal Color Assessment and Plan - Assessment and Plan (Free Text) Assessment: 81 yo male presenting with new onset right lower facial droop and eyelid lag. No previous history. Check for common viruses as a trigger point. There is no set therapy for the patient's current neurologic condition. It does not appear allergic in nature. Supportive care. The patient with current diagnosis of Chaudhry's Palsy. Acceptable therapy is use of steroids. While a large number of Chaudhry's Palsy cases appear to be associated with viral infections, studies done to date have not shown benefit with addition of anti-viral drugs to treatment. Studies done to date support use of steroid therapy alone in Chaudhry's Palsy cases. Use of Acyclovir has not shown significant improvement in patient outcomes and no difference from use of Valtrex (Valacyclovir). Would continue with steroid treatment as per Neurology but use of Valtrex would be optional. Obtain influenza, CMV, and EBV studies at this time. Obtain ESR and C-Reactive protein. Thank you for allowing me to participate in the care of this patient, we will follow with you.
--- NOTE | 2017-02-12 20:42 | CON ---
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 BRIEF CLINICAL HISTORY: This is an 81-year-old male with past medical history significant for hypertension, diabetes, gout, BPH, and osteoarthritis, complained of right facial droop. 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 The patient denies any chest pain, denies any shortness of breath, denies any palpitation, was on telemetry monitoring with 5 beats of VT, so Cardiology consult was called. The patient denies any episode of dyspnea on exertion or chest pain on exertion. PAST MEDICAL HISTORY: Significant for hypertension, diabetes, obesity, gout, and osteoarthritis. SOCIAL HISTORY: The patient lives in [place]. Denies any tobacco abuse, alcohol abuse, or any substance abuse. FAMILY HISTORY: Significant for diabetes, Parkinson's disease, and prostate CA. PAST SURGICAL HISTORY: Significant for appendectomy in 1969. REVIEW OF SYSTEMS: As per HPI. PHYSICAL EXAMINATION: VITAL SIGNS: As follows; temperature afebrile, heart rate 63, blood pressure 148/83. HEENT: PERRLA. Extraocular muscles intact. NECK: Supple. No carotid bruit or thyromegaly. CHEST: Clear to auscultation. HEART: S1 and S2 regular. ABDOMEN: Soft. EXTREMITIES: Clubbing and cyanosis negative. LABORATORY DATA: Blood workup as follows: WBC 10.7, hemoglobin 12.9, hematocrit 38.4, platelet count 170. Chemistry shows sodium 142, potassium 4.4, chloride 107, carbon dioxide 27, anion gap of 12, BUN 37, creatinine 1.3. EKG showed normal sinus, T inversion in V1, V5 to V6, consider possible anterolateral ischemia versus LVH. Admitting troponin 0.01, the patient is asymptomatic. IMPRESSION: Diabetes, hypertension, hyperlipidemia, obesity, admitted with Chaudhry's palsy. Multiple coronary artery disease suggest echocardiogram, schedule stress test as an outpatient. The patient is asymptomatic. Denies any chest pain. I discussed with the patient and we will schedule a stress test as an outpatient. The patient has an abnormal EKG, needs to rule out underlying coronary artery disease. We will follow with you. Thank you Dr. Lam for providing us the opportunity in taking care of the patient. Rahel Hatfield MD
--- NOTE | 2017-02-12 23:12 | CON ---
ADDENDUM TO INITIAL CONSULT DATE: 02/12/2017 REASON FOR ADDENDUM: The patient has been scheduled for a stress test in a week as outpatient, talked to the patient, but the patient wanted to go back to [place] and wanted to do a stress test in [place] with his [employer]. The patient said that he has a booking for travel on 02/21/2017, so he will do and he does a periodic stress test with the [employer]. Emphasis made to the patient that the patient needs to have his stress because of underlying comorbidity and abnormal EKG, but since the patient is asymptomatic, the patient can go and have a stress test done with his [employer]. So we will take him off from a stress test in [place] as per the patient's request and the patient will do in [place]. Thank you Dr. Lam for providing the opportunity in taking care of the patient. Rahel Hatfield MD cc: Aliyah Lam MD
[2017-02-13 11:07] LABS: EPSTEIN-BARR VCA AB IGM <36.00 U/mL
[2017-02-13 20:49] LABS: CYTOMEGALOVIRUS AB (IGM) <30.00 AU/mL
== END 2017-02-12 18:18 | disposition home or self-care (01) | DRG 74 ==
LOC: ED 11:11 → ERH 12:51 → 2RNO 14:45 → OBSVTOIN 02-10 18:15
PROVIDERS: ADMIT Internal Medicine; ATTEND Internal Medicine
DX: G51.0 Bell's palsy (principal); E11.22 Type 2 diabetes mellitus with diabetic chronic kidney disease; E11.65 Type 2 diabetes mellitus with hyperglycemia; D64.9 Anemia, unspecified; I12.9 Hypertensive chronic kidney disease with stage 1 through stage 4 chronic kidney disease, or unspecified chronic kidney disease; N18.9 Chronic kidney disease, unspecified; N40.0 Benign prostatic hyperplasia without lower urinary tract symptoms; M19.90 Unspecified osteoarthritis, unspecified site; H02.533 Eyelid retraction right eye, unspecified eyelid; E66.9 Obesity, unspecified; Z68.32 Body mass index [BMI] 32.0-32.9, adult; E78.5 Hyperlipidemia, unspecified; M1A.9XX0 Chronic gout, unspecified, without tophus (tophi); Z90.49 Acquired absence of other specified parts of digestive tract